=== PATIENT | male | born 1950 | race Caucasian/White ===

== ENCOUNTER 2017-09-01 07:47 | Inpatient (IN) | payer OTHER, MEDICAID ==
[~2017-09-01] VITALS: Ht 172.7 cm; Wt 74.8 kg
[2017-09-01 08:46] LABS: POTASSIUM SERUM 4.3 mmol/L (3.5-5.1)
[2017-09-01 08:49] LABS: BASOPHIL % 0.3 % (0-2); PLATELET COUNT 405 x10^3mcL (130-400)
[2017-09-01 08:57] LABS: BILIRUBIN TOTAL 0.3 mg/dL (0.20-1.00); CALCIUM 8.6 mg/dL (8.5-10.1); CARBON DIOXIDE 23.7 mmol/L (21-32); CREATININE SERUM 1.5 mg/dL (0.7-1.3); TOTAL PROTEIN, SERUM 6.8 g/dL (6.4-8.2)
[2017-09-01 09:38] LABS: CHOLESTEROL/HDL RATIO 4.8; MAGNESIUM 1.8 mg/dL (1.8-2.4); PHOSPHOROUS 4.9 mg/dL (2.5-4.9)
[2017-09-01 09:40] LABS: T3 TOTAL 0.73 ng/mL
[2017-09-01 09:41] LABS: FREE T4 1.07 ng/dL (0.76-1.46); FREE THYROXINE INDEX 2.6 ug/dL (1.4-4.5); T4(THYROXINE) 7.5 ug/dL (4.7-13.3)
[2017-09-01] MEDS ORDERED: LOSARTAN POTASS50 M1 PO (10:12)
[2017-09-01] MEDS ORDERED: CARVEDILOL3.125 M1 PO (10:13)
[2017-09-01] MEDS ORDERED: PREDNISONE20 MG PO (11:32)
[2017-09-01] MEDS ORDERED: GLUCOTROL5 MG PO (11:33)
[2017-09-01] MEDS ORDERED: PANTOPRAZOLE SO40 M1 PO (11:34)
[2017-09-01] MEDS ORDERED: LEVOTHYROXIN0.075 M2 PO (11:55)
[2017-09-01 12:26] VITALS: BP 112/64
[2017-09-01 12:38] LABS: microscopic required? NO
[2017-09-01 12:46] LABS: urine erythrocyte NEGATIVE (NEGATIVE)
[2017-09-01 13:07] LABS: AMPHETAMINE QUAL UR NONE DETECTED (NEG <=1000)
[2017-09-01] MEDS ORDERED: CEL500 PO (14:09)
[2017-09-01 16:00] VITALS: BP 109/65
[2017-09-01 18:00] VITALS: BP 112/64
[2017-09-01 19:31] VITALS: BP 168/92
[2017-09-01 23:07] VITALS: BP 150/78
[2017-09-02 02:59] VITALS: BP 116/74
[2017-09-02 05:46] LABS: BASOPHIL % 0.2 % (0-2); PLATELET COUNT 297 x10^3mcL (130-400)
[2017-09-02 05:53] LABS: RED CELL DISTRIBUTION WIDTH 18.2 % (11.5-14.5)
[2017-09-02 06:01] LABS: CALCIUM 9.3 mg/dL (8.5-10.1); CARBON DIOXIDE 28.2 mmol/L (21-32); CHLORIDE SERUM 100 mmol/L (98-107); CREATININE SERUM 1.1 mg/dL (0.7-1.3); GFR1 > 60 mL/min; GLUCOSE SERUM 263 mg/dL (74-106); MAGNESIUM 1.9 mg/dL (1.8-2.4); PHOSPHOROUS 3.6 mg/dL (2.5-4.9); POTASSIUM SERUM 5.4 mmol/L (3.5-5.1); SODIUM SERUM 134 mmol/L (136-145)
[2017-09-02 08:08] VITALS: BP 142/63
[2017-09-02 13:00] VITALS: BP 138/75
[2017-09-02 15:20] VITALS: BP 132/65
[2017-09-03 06:18] VITALS: BP 113/77
[2017-09-03 07:09] LABS: BASOPHIL % 0.1 % (0-2); PLATELET COUNT 276 x10^3mcL (130-400)
[2017-09-03 07:14] LABS: RED CELL DISTRIBUTION WIDTH 18.2 % (11.5-14.5)
[2017-09-03 08:13] LABS: CALCIUM 8.5 mg/dL (8.5-10.1); CARBON DIOXIDE 24.2 mmol/L (21-32); CHLORIDE SERUM 99 mmol/L (98-107); CREATININE SERUM 1.1 mg/dL (0.7-1.3); GFR1 > 60 mL/min; GLUCOSE SERUM 275 mg/dL (74-106); POTASSIUM SERUM 3.4 mmol/L (3.5-5.1); SODIUM SERUM 135 mmol/L (136-145)
[2017-09-03 09:17] VITALS: BP 114/66
[2017-09-03] MEDS ORDERED: LEVAQUIN750 MG PO (13:03)
[2017-09-03] MEDS ORDERED: METFORMIN HCL850 MG PO (13:41)
[2017-09-03] MEDS ORDERED: LAC PO (13:48)
[2017-09-03] MEDS ORDERED: LIPI10 PO (13:48)
[2017-09-03] MEDS ORDERED: COR3 PO (13:48)
[2017-09-03] MEDS ORDERED: ECO81 PO (13:48)
[2017-09-03 14:45] VITALS: BP 114/66
== END 2017-09-03 15:33 | disposition home or self-care (01) | DRG 228 ==
LOC: ED 07:47 → DU 09:01 → IC 09:01 → DU 09-02 20:20
PROVIDERS: Emergency Medicine; Family Medicine; Internal Medicine Interventional Cardiology; ADMIT Family Medicine
PROC: 02HK3NZ Insertion of Intracardiac Pacemaker into Right Ventricle, Percutaneous Approach (ICD-10-PCS; 2017-09-01)
PROC: 02H63JZ Insertion of Pacemaker Lead into Right Atrium, Percutaneous Approach (ICD-10-PCS; 2017-09-02)
PROC: 02HK3JZ Insertion of Pacemaker Lead into Right Ventricle, Percutaneous Approach (ICD-10-PCS; 2017-09-02)
PROC: 0JH606Z Insertion of Pacemaker, Dual Chamber into Chest Subcutaneous Tissue and Fascia, Open Approach (ICD-10-PCS; principal; 2017-09-02 10:00)
DX: I44.2 Atrioventricular block, complete (principal); N17.0 Acute kidney failure with tubular necrosis; E87.1 Hypo-osmolality and hyponatremia; E44.0 Moderate protein-calorie malnutrition; E11.65 Type 2 diabetes mellitus with hyperglycemia; M06.9 Rheumatoid arthritis, unspecified; I10 Essential (primary) hypertension; E03.9 Hypothyroidism, unspecified; E78.5 Hyperlipidemia, unspecified; Z68.25 Body mass index [BMI] 25.0-25.9, adult; Z79.84 Long term (current) use of oral hypoglycemic drugs
CPT/HCPCS: 33208; 36600; 76001; 82962; 83880; 84439; C1785; C1894; J0461; J0690; J1815; J1956; J2001; J2250; J2270; J2405; J3010; J3370; J3490; J7030; J7040; J7050; J7512; J7517; J7620; Q0092; Q9967